=== PATIENT | male | born 1950 | race Hispanic/Latino ===

== ENCOUNTER 2018-10-25 09:11 | Emergency (ER) | payer MEDICARE ==
[2018-10-25] MEDS ORDERED: IBUPROFEN 600 MG TABLET ONE (10:24)
[2018-10-25] MEDS ORDERED: ACETAMINOPHEN-CODEINE 300/30MG TAB ONE (10:25)
== END 2018-10-25 13:59 | disposition home or self-care (01) ==
LOC: EDH 09:11
DX: S22.42XA Multiple fractures of ribs, left side, initial encounter for closed fracture (principal); Z87.891 Personal history of nicotine dependence; W18.39XA Other fall on same level, initial encounter; Y93.01 Activity, walking, marching and hiking; Y92.89 Other specified places as the place of occurrence of the external cause; Y99.8 Other external cause status
CPT/HCPCS: 71101; 71250

== ENCOUNTER 2022-12-05 10:31 | Emergency (ER) | payer MEDICARE, OTHER ==
[~2022-12-05] VITALS: Ht 170.2 cm; Wt 91.7 kg
[2022-12-05] MEDS ORDERED: TRAMADOL HCL 50 MG TABLET PO ONE (12:00)
[2022-12-05] MEDS ORDERED: NIFEDIPINE 10 MG CAP PO ONE (13:00)
[2022-12-05 13:36] VITALS: BP 172/90; PULSE 85; RESP 18; O2SAT 97
[2022-12-05] MEDS ORDERED: TRAM50TA4 PO (13:40)
[2022-12-05] MEDS ORDERED: AZIT250T9 PO (13:40)
== END 2022-12-05 14:36 | disposition home or self-care (01) ==
LOC: EDH 10:31
DX: S22.31XA Fracture of one rib, right side, initial encounter for closed fracture (principal); W18.39XA Other fall on same level, initial encounter; W22.03XA Walked into furniture, initial encounter; Y92.89 Other specified places as the place of occurrence of the external cause; Y99.8 Other external cause status; Z98.890 Other specified postprocedural states
CPT/HCPCS: 71101